=== PATIENT | male | born 1960 | race Caucasian/White ===

== ENCOUNTER 2017-05-26 09:59 | Observation (INO) | payer OTHER ==
[~2017-05-26] VITALS: Ht 180.3 cm; Wt 116.0 kg
[~2017-05-26 09:59] MED LIST: AMLODIPINE10 MG OR; ASA LO-DOSE81 MG OR; BL ADULT ASA81 MG PO; BUPROPION100 M1 OR; BUPROPION100 MG OR; CIPRO500 MG OR; CIPRO500 MG PO; CLEOCIN300 MG OR; ENALAPRIL5 MG OR; ENALAPRIL5 MG PO; FLEXERIL OR; INDOMETHACIN25 MG OR; ISOSORB MONO30 MG PO; K-DUR/KLOR-CON10 MEQ OR; LASIX40 MG OR; LIPITOR40 MG OR; LOPRESSOR12.5 MG PO; LOPRESSOR25 MG PO; LORTAB 7.5 OR; LORTAB5 OR; MAG OXIDE400 MG OR; MEDDOSEPAK OR; METOPROLOL25 M1 OR; MOTRIN800 MG OR; NAPROSYN500 MG OR; NO MEDS; NORCO1 TA1 PO; NORVASC OR; PERCOCET1 TA1 OR; PERCOCET1 TA4 OR; PLAVIX75 MG OR; PLAVIX75 MG PO; PRILOSEC40 MG OR; PROTONIX40 M2 PO; SIMVASTATIN40 MG OR; SIMVASTATIN40 MG PO; SM ASPIRIN81 M1 OR; ULTRAM50 MG PO; VENTOLIN HFA IN; WELLBUTRI OR; WELLBUTRIN100 M2 PO; ZANTAC150 M1 OR; ZETIA10 MG OR; ZOCOR OR; ZOCOR40 MG OR
--- NOTE | 2017-05-26 09:59 | NUR ---
PT TO ROOM 12 VIA WC. ABLE TO STAND AND TRANSFER SELF TO STRETCHER.
[2017-05-26] MEDS ORDERED: LOSARTAN POTASS50 MG PO (10:28)
[2017-05-26] MEDS ORDERED: ATORVASTATIN CA40 MG PO (10:29)
[2017-05-26] MEDS ORDERED: METOPROL TAR25 MG PO (10:30)
[2017-05-26] MEDS ORDERED: CENTRUM SILVER1 TA2 PO (10:31)
[2017-05-26] MEDS ORDERED: OMEPRAZOLE10 MG PO (10:31)
[2017-05-26 10:38] LABS: HEMATOCRIT 45.9 % (39.0-50.0); HEMOGLOBIN 15.1 g/dl (14.0-18.0); IMMATURE GRANULOCYTES 0.4 % (0.0-1.0); MEAN CELL VOLUME 84.1 fL CALC (80.0-100.0); MEAN CORPUSCULAR HGB 27.7 pG CALC (26.0-32.0); MEAN CORPUSCULAR HGB CONC 32.9 g/L CALC (32.0-36.0); NEUT# 6.86 thou/uL (1.82-7.42); RED BLOOD COUNT 5.46 mill/uL (4.70-6.10); RED CELL DISTRI WIDTH 14.6 % (11.5-15.5)
[2017-05-26 11:01] LABS: ALBUMIN 4.3 g/dL (3.2-5.0); ALKALINE PHOSPHATASE 95 u/l (38-126); ANION GAP 15 (6-22 (CALC)); BILIRUBIN, TOTAL 0.5 mg/dL (0.0-1.4); BUN 9 mg/dL (9-20); BUN/CREATININE RATIO 12 (12-20 (CALC)); CALCIUM 9.5 mg/dL (8.4-10.2); CARBON DIOXIDE 26 mmol/l (22-30); CHLORIDE 103 mmol/l (95-108); CREATININE 0.7 mg/dL (0.7-1.3); GFR > 60 ML/MIN (>=60 (CALC)); GFR FOR AFR.AMER. > 60 ML/MIN (>=60 (CALC)); GLUCOSE 175 mg/dL (75-110); POTASSIUM 3.8 mmol/l (3.5-5.1); SGOT/AST 25 u/l (17-59); SGPT/ALT 47 u/l (21-72); SODIUM 140 mmol/l (137-146); TOTAL PROTEIN 7.7 g/dL (6.3-8.2)
[2017-05-26 11:13] LABS: MYOGLOBIN 24 ng/mL (0 - 121)
--- NOTE | 2017-05-26 11:30 | NUR ---
SBAR PRINTED TO FLOOR
--- NOTE | 2017-05-26 11:34 | NUR ---
EDP SPEAKS WITH PT, AWARE OF PENDING ADMISSION. PT WITHOUT COMPLAINT OF CHEST PAIN OR SHORTNESS OF BREATH. FAMILY AT BEDSIDE.
--- NOTE | 2017-05-26 13:00 | NUR ---
PT ARRIVED FROM ER [facility] WC ACCOMPANIED BY STAFF,. IV SITE IS FREE FROM REDNESS OR EDEMA. NO DISTRESS NOTED. CONTINUE TO OSBERVE AND MONITOR.
--- NOTE | 2017-05-26 13:00 | NUR ---
Admission Note Report Given to: SBAR PRINTED TO FLOOR Transported by: X Wheelchair Stretcher Transported with: X Nurse Transporter X Patent IV O2 X Class A Regional Truck Driver
[2017-05-26 13:16] VITALS: BP 145/95
--- NOTE | 2017-05-26 13:25 | NUR ---
PT TAKEN TO ROOM WITHOUT INCIDENT.
--- NOTE | 2017-05-26 13:30 | NUR ---
PT'S ASSESSMENT IS COMPLETED NO DISTRESS NOTED. IV SITE IS FREE FROM REDNESS OR EDEMA. CONTINUE TO [facility]
--- NOTE | 2017-05-26 15:53 | NUR ---
pt c/o naussea with medication"ranexa". will inform the
--- NOTE | 2017-05-26 16:30 | NUR ---
PT HAS BEEN AMBULATING IN THE [facility] NO DISTRESS NOTED. IV SITE IS FREE FROM REDNESS OR EDEMA.
[2017-05-26 19:30] VITALS: BP 151/94
--- NOTE | 2017-05-26 21:15 | NUR ---
PT RESTING IN SEMI FOWLERS POSITION;PT DENIES ANY CHEST PAIN;RESPIRATIONS EVEN AND UNLABORED ON RA;ASSESSMENT COMPLETED;#20G TO LAC FLUSHED AND PATENT;TELE MONITOR IN PLACE;MAURICIO AND CLEAR LUNG SOUNDS;SKIN INTACT;SAFETY PRECAUTIONS REINFORCED;FRESH WATER PROVIDED PER REQUEST;CALL LIGHT IN REACH;WILL CONTINUE TO MONITOR
[2017-05-26 23:07] VITALS: BP 121/83
--- NOTE | 2017-05-27 00:20 | NUR ---
LAB AT BEDSIDE;PT VOICES NO COMPLAINTS OF PAIN OR DISCOMFORTS;RESPIRATIONS EVEN AND UNLABORED ON RA;TELE MONITOR IN PLACE;CALL LIGHT IN REACH;WILL CONTINUE TO MONITOR
--- NOTE | 2017-05-27 04:25 | NUR ---
PT RESTING IN BED;VS OBTAINED BY MARCELLE FRANCSI;PT DENIES ANY CHEST PAIN OR DISCOMFORTS THIS MORNING;TELE MONITOR IN PLACE;PT DENIES ANY NEEDS AND IS EDUCATED TO CALL FOR ASSISTANCE IF NEEDED;CALL LIGHT IN REACH;WILL CONTINUE TO MONITOR
[2017-05-27 04:26] VITALS: BP 142/89
--- NOTE | 2017-05-27 07:00 | NUR ---
REPORT RECIEVED FROM ELSA KEATING. PT AWAKE ON ENTRY AND SITTING ON SIDE OF BED WITH FAMILY AT BEDSIDE. PT HAS NO COMPLAINTS OF PAIN. RESP EVEN AND UNLABORED.TELE IN PLACE. SAFETY PRECAUTIONS REINFORCED. WILL CONTINUE TO MONITOR. CALL LIGHT WITHIN REACH.
[2017-05-27 08:29] VITALS: BP 131/85
[2017-05-27 09:56] VITALS: BP 131/85
--- NOTE | 2017-05-27 13:16 | NUR ---
Discharge instructions given. Patient verbalizes understanding of same. Discharged in stable condition via Ambulatory to Home with spouse. All belongings sent with pt.
== END 2017-05-27 13:16 | disposition home or self-care (01) | DRG 303 ==
LOC: ED 09:59 → ED-I 11:20 → ED 11:31 → MS2 11:32
PROVIDERS: Emergency Medicine; ADMIT Internal Medicine; ATTEND Internal Medicine
DX: I25.118 Atherosclerotic heart disease of native coronary artery with other forms of angina pectoris (principal); J43.9 Emphysema, unspecified; I10 Essential (primary) hypertension; E78.5 Hyperlipidemia, unspecified; F17.210 Nicotine dependence, cigarettes, uncomplicated; I25.2 Old myocardial infarction; Z95.1 Presence of aortocoronary bypass graft; Z95.5 Presence of coronary angioplasty implant and graft
CPT/HCPCS: G0378

== ENCOUNTER 2017-06-24 15:20 | Emergency (ER) | payer OTHER ==
[~2017-06-24] VITALS: Ht 180.3 cm; Wt 85.0 kg
[~2017-06-24 15:20] MED LIST changes: +ATORVASTATIN CA40 MG PO; +CENTRUM SILVER1 TA2 PO; +LOSARTAN POTASS50 MG PO; +METOPROL TAR25 MG PO; +OMEPRAZOLE10 MG PO
[2017-06-24 16:06] LABS: HEMATOCRIT 37.3 % (39.0-50.0); IMMATURE GRANULOCYTES 0.8 % (0.0-1.0); MEAN CELL VOLUME 85.9 fL CALC (80.0-100.0); MEAN CORPUSCULAR HGB 27.6 pG CALC (26.0-32.0); MEAN CORPUSCULAR HGB CONC 32.2 g/L CALC (32.0-36.0); NEUT# 8.39 thou/uL (1.82-7.42); RED BLOOD COUNT 4.34 mill/uL (4.70-6.10); RED CELL DISTRI WIDTH 15.1 % (11.5-15.5)
[2017-06-24] MEDS ORDERED: PERCOCET 10/31 COMBO PO (16:07)
[2017-06-24 16:12] LABS: ALBUMIN 4.1 g/dL (3.2-5.0); ALKALINE PHOSPHATASE 109 u/l (38-126); ANION GAP 17 (6-22 (CALC)); BILIRUBIN, TOTAL 0.4 mg/dL (0.0-1.4); BUN 8 mg/dL (9-20); BUN/CREATININE RATIO 11 (12-20 (CALC)); CALCIUM 9.7 mg/dL (8.4-10.2); CARBON DIOXIDE 24 mmol/l (22-30); CHLORIDE 106 mmol/l (95-108); CREATININE 0.8 mg/dL (0.7-1.3); GFR > 60 ML/MIN (>=60 (CALC)); GFR FOR AFR.AMER. > 60 ML/MIN (>=60 (CALC)); GLUCOSE 142 mg/dL (75-110); POTASSIUM 3.6 mmol/l (3.5-5.1); SGOT/AST 26 u/l (17-59); SGPT/ALT 37 u/l (21-72); SODIUM 144 mmol/l (137-146); TOTAL PROTEIN 6.8 g/dL (6.3-8.2)
[2017-06-24] MEDS ORDERED: BACTRIM DS1 TAB PO (17:00)
[2017-06-24 17:08] VITALS: BP 123/77
[2017-06-24] MEDS ORDERED: PERCOCET1 TA2 PO (17:12)
== END 2017-06-24 17:40 | disposition home or self-care (01) | DRG 603 ==
LOC: ED 15:20
PROVIDERS: Emergency Medicine
DX: L03.116 Cellulitis of left lower limb (principal); E78.5 Hyperlipidemia, unspecified; I10 Essential (primary) hypertension; I25.10 Atherosclerotic heart disease of native coronary artery without angina pectoris; I25.2 Old myocardial infarction; F17.210 Nicotine dependence, cigarettes, uncomplicated; M79.89 Other specified soft tissue disorders; Z95.1 Presence of aortocoronary bypass graft; Z98.890 Other specified postprocedural states

== ENCOUNTER 2019-12-06 14:55 | Emergency (ER) | payer OTHER ==
[~2019-12-06 14:55] MED LIST changes: +ASPIRIN CHEWABL81 MG PO; +BACTRIM DS1 TAB PO; -BL ADULT ASA81 MG PO; +PERCOCET 10/31 COMBO PO; +PERCOCET1 TA2 PO
[2019-12-06 15:26] LABS: HEMATOCRIT 45.1 % (39.0-50.0); HEMOGLOBIN 14.5 g/dl (14.0-18.0); IMMATURE GRANULOCYTES 0.8 % (0.0-5.0); MEAN CELL VOLUME 83.4 fL CALC (80.0-100.0); MEAN CORPUSCULAR HGB 26.8 pG CALC (26.0-32.0); MEAN CORPUSCULAR HGB CONC 32.2 g/dL CAL (32.0-36.0); NEUT# 9.78 thou/uL (1.82-7.42); RED BLOOD COUNT 5.41 mill/uL (4.70-6.10); RED CELL DISTRI WIDTH 15.7 % (11.5-15.5)
[2019-12-06 15:43] LABS: ALBUMIN 4.4 g/dL (3.2-5.0); ALKALINE PHOSPHATASE 111 u/l (38-126); ANION GAP 14 (6-22 (CALC)); BILIRUBIN, TOTAL 0.3 mg/dL (0.0-1.4); BUN 11 mg/dL (9-20); BUN/CREATININE RATIO 18 (12-20 (CALC)); CARBON DIOXIDE 25 mmol/l (22-30); CHLORIDE 100 mmol/l (95-108); CREATININE 0.6 mg/dL (0.7-1.3); GFR > 60 ML/MIN (>=60 (CALC)); GFR FOR AFR.AMER. > 60 ML/MIN (>=60 (CALC)); POTASSIUM 3.7 mmol/l (3.5-5.1); SGOT/AST 32 u/l (17-59); SODIUM 135 mmol/l (137-146); TOTAL PROTEIN 8.4 g/dL (6.3-8.2)
[2019-12-06 16:04] LABS: URINE BILIRUBIN - DIPSTICK NEGATIVE (NEGATIVE); URINE BLOOD DIPSTICK SMALL (NEGATIVE); URINE COLOR YELLOW; URINE GLUCOSE - DIPSTICK NEGATIVE (NEGATIVE); URINE KETONE NEGATIVE (NEGATIVE); URINE LEUK ESTERASE NEGATIVE (NEGATIVE); URINE NITRITE - DIPSTICK NEGATIVE (Negative); URINE PROTEIN - DIPSTICK NEGATIVE (NEG-TRACE); URINE SPECIFIC GRAVITY 1.025; URINE UROBILINOGEN - DIPSTICK 0.2 E.U./dL (0.2)
[2019-12-06] MEDS ORDERED: LASIX 20 MG TAB20 MG PO (16:12)
[2019-12-06 16:13] LABS: URINE WBC 0-2 WBC/hpf (0-5)
[2019-12-06] MEDS ORDERED: ISOSORB MONO60 M1 PO (16:13)
[2019-12-06] MEDS ORDERED: OMEPRAZOLE DR40 MG PO (16:14)
[2019-12-06] MEDS ORDERED: NITROSTAT0.4 MG SL (16:14)
[2019-12-06] MEDS ORDERED: CRESTOR10 MG PO (16:15)
[2019-12-06 17:13] VITALS: BP 143/89
[2020-04-06] MEDS ORDERED: PLAVIX75 MG PO (08:17)
[2020-04-06] MEDS ORDERED: ASPIRIN 8181 MG PO (08:21)
== END 2019-12-06 17:13 | disposition left against medical advice (07) ==
LOC: ED 14:55 → ED-I 15:39 → ED 15:39 → ED-I 16:40 → ED 17:13
PROVIDERS: Family Medicine
DX: I25.119 Atherosclerotic heart disease of native coronary artery with unspecified angina pectoris (principal); I10 Essential (primary) hypertension; I25.2 Old myocardial infarction; F17.200 Nicotine dependence, unspecified, uncomplicated; Z95.5 Presence of coronary angioplasty implant and graft; Z95.1 Presence of aortocoronary bypass graft; Z91.19 Patient's noncompliance with other medical treatment and regimen; Z20.828 Contact with and (suspected) exposure to other viral communicable diseases

== ENCOUNTER 2020-01-23 17:15 | Emergency (ER) | payer OTHER ==
[~2020-01-23] VITALS: Ht 180.3 cm; Wt 102.0 kg
[~2020-01-23 17:15] MED LIST changes: +CRESTOR10 MG PO; +ISOSORB MONO60 M1 PO; +LASIX 20 MG TAB20 MG PO; +NITROSTAT0.4 MG SL; +OMEPRAZOLE DR40 MG PO
[2020-01-23 18:17] LABS: HEMATOCRIT 43.7 % (39.0-50.0); HEMOGLOBIN 13.7 g/dl (14.0-18.0); IMMATURE GRANULOCYTES 0.6 % (0.0-5.0); MEAN CORPUSCULAR HGB 26.7 pG CALC (26.0-32.0); MEAN CORPUSCULAR HGB CONC 31.4 g/dL CAL (32.0-36.0); NEUT# 8.14 thou/uL (1.82-7.42); RED BLOOD COUNT 5.14 mill/uL (4.70-6.10); RED CELL DISTRI WIDTH 15.6 % (11.5-15.5)
[2020-01-23 18:33] LABS: URINE BILIRUBIN - DIPSTICK NEGATIVE (NEGATIVE); URINE BLOOD DIPSTICK NEGATIVE (NEGATIVE); URINE COLOR YELLOW; URINE GLUCOSE - DIPSTICK NEGATIVE (NEGATIVE); URINE KETONE NEGATIVE (NEGATIVE); URINE LEUK ESTERASE NEGATIVE (NEGATIVE); URINE NITRITE - DIPSTICK NEGATIVE (Negative); URINE PROTEIN - DIPSTICK NEGATIVE (NEG-TRACE); URINE SPECIFIC GRAVITY 1.025; URINE UROBILINOGEN - DIPSTICK 0.2 E.U./dL (0.2)
[2020-01-23 18:45] LABS: ALKALINE PHOSPHATASE 93 u/l (38-126); AMYLASE 77 u/l (30-110); ANION GAP 8 (6-22 (CALC)); BILIRUBIN, TOTAL 0.3 mg/dL (0.0-1.4); BUN 8 mg/dL (9-20); BUN/CREATININE RATIO 12 (12-20 (CALC)); CARBON DIOXIDE 29 mmol/l (22-30); CHLORIDE 101 mmol/l (95-108); CREATININE 0.7 mg/dL (0.7-1.3); GFR > 60 ML/MIN (>=60 (CALC)); GFR FOR AFR.AMER. > 60 ML/MIN (>=60 (CALC)); LIPASE 157 u/l (23-300); POTASSIUM 3.9 mmol/l (3.5-5.1); SGOT/AST 35 u/l (17-59); SODIUM 134 mmol/l (137-146); TOTAL PROTEIN 7.8 g/dL (6.3-8.2)
[2020-01-23 19:38] LABS: MYOGLOBIN 46 ng/mL (0 - 121)
[2020-01-23] MEDS ORDERED: PHENERGAN25 MG/TAB PO ×2 (20:02)
[2020-01-23] MEDS ORDERED: LORTAB 5/3255 MG PO (20:02)
[2020-01-23 20:23] VITALS: BP 153/88
[2020-04-06] MEDS ORDERED: PLAVIX75 MG PO (08:17)
[2020-04-06] MEDS ORDERED: ASPIRIN 8181 MG PO (08:21)
== END 2020-01-23 20:23 | disposition home or self-care (01) ==
LOC: ED 17:15
PROVIDERS: Emergency Medicine
DX: R10.11 Right upper quadrant pain (principal); R10.31 Right lower quadrant pain; K82.9 Disease of gallbladder, unspecified; N20.0 Calculus of kidney; I10 Essential (primary) hypertension; I25.10 Atherosclerotic heart disease of native coronary artery without angina pectoris; I25.2 Old myocardial infarction; F17.200 Nicotine dependence, unspecified, uncomplicated; Z95.1 Presence of aortocoronary bypass graft; Z95.5 Presence of coronary angioplasty implant and graft; Z20.828 Contact with and (suspected) exposure to other viral communicable diseases
CPT/HCPCS: Q9967; S0164

== ENCOUNTER 2020-02-21 18:30 | Emergency (ER) | payer OTHER ==
[~2020-02-21] VITALS: Ht 180.3 cm; Wt 129.5 kg
[~2020-02-21 18:30] MED LIST changes: +LORTAB 5/3255 MG PO; +PHENERGAN25 MG/TAB PO
[2020-02-21] MEDS ORDERED: PERCOCET 5/325M1 TAB PO (18:44)
[2020-02-21 19:01] LABS: HEMATOCRIT 45.3 % (39.0-50.0); HEMOGLOBIN 13.9 g/dl (14.0-18.0); IMMATURE GRANULOCYTES 0.6 % (0.0-5.0); MEAN CELL VOLUME 84.7 fL CALC (80.0-100.0); MEAN CORPUSCULAR HGB CONC 30.7 g/dL CAL (32.0-36.0); NEUT# 7.84 thou/uL (1.82-7.42); RED BLOOD COUNT 5.35 mill/uL (4.70-6.10); RED CELL DISTRI WIDTH 15.2 % (11.5-15.5)
[2020-02-21 19:17] LABS: URINE BILIRUBIN - DIPSTICK NEGATIVE (NEGATIVE); URINE BLOOD DIPSTICK TRACE-INTACT (NEGATIVE); URINE COLOR YELLOW; URINE GLUCOSE - DIPSTICK NEGATIVE (NEGATIVE); URINE KETONE TRACE mg/dL (NEGATIVE); URINE LEUK ESTERASE NEGATIVE (NEGATIVE); URINE NITRITE - DIPSTICK NEGATIVE (Negative); URINE PROTEIN - DIPSTICK NEGATIVE (NEG-TRACE); URINE SPECIFIC GRAVITY >=1.030
[2020-02-21 19:21] LABS: ALBUMIN 4.5 g/dL (3.2-5.0); ALKALINE PHOSPHATASE 108 u/l (38-126); ANION GAP 11 (6-22 (CALC)); BILIRUBIN, TOTAL 0.3 mg/dL (0.0-1.4); BUN 10 mg/dL (9-20); BUN/CREATININE RATIO 12 (12-20 (CALC)); CARBON DIOXIDE 28 mmol/l (22-30); CHLORIDE 103 mmol/l (95-108); CREATININE 0.8 mg/dL (0.7-1.3); GFR > 60 ML/MIN (>=60 (CALC)); GFR FOR AFR.AMER. > 60 ML/MIN (>=60 (CALC)); LIPASE 85 u/l (23-300); POTASSIUM 3.9 mmol/l (3.5-5.1); SGOT/AST 31 u/l (17-59); SODIUM 138 mmol/l (137-146); TOTAL PROTEIN 8.2 g/dL (6.3-8.2)
[2020-02-21 21:14] VITALS: BP 143/85
[2020-04-06] MEDS ORDERED: PLAVIX75 MG PO (08:17)
[2020-04-06] MEDS ORDERED: ASPIRIN 8181 MG PO (08:21)
== END 2020-02-21 22:15 ==
LOC: ED 18:30
PROVIDERS: Family Medicine
DX: K80.00 Calculus of gallbladder with acute cholecystitis without obstruction (principal); I10 Essential (primary) hypertension; F17.200 Nicotine dependence, unspecified, uncomplicated; Z20.828 Contact with and (suspected) exposure to other viral communicable diseases

== ENCOUNTER 2020-02-28 10:50 | Emergency (ER) | payer OTHER ==
[~2020-02-28] VITALS: Ht 180.3 cm; Wt 127.0 kg
[~2020-02-28 10:50] MED LIST changes: +PERCOCET 5/325M1 TAB PO
[2020-02-28 12:22] LABS: HEMATOCRIT 43.1 % (39.0-50.0); HEMOGLOBIN 13.3 g/dl (14.0-18.0); IMMATURE GRANULOCYTES 0.8 % (0.0-5.0); MEAN CELL VOLUME 84.2 fL CALC (80.0-100.0); MEAN CORPUSCULAR HGB CONC 30.9 g/dL CAL (32.0-36.0); NEUT# 8.29 thou/uL (1.82-7.42); RED BLOOD COUNT 5.12 mill/uL (4.70-6.10); RED CELL DISTRI WIDTH 15.5 % (11.5-15.5)
[2020-02-28 12:30] LABS: GFR > 60 ML/MIN (>=60 (CALC)); GFR FOR AFR.AMER. > 60 ML/MIN (>=60 (CALC))
[2020-02-28 12:41] LABS: URINE BILIRUBIN - DIPSTICK NEGATIVE (NEGATIVE); URINE BLOOD DIPSTICK NEGATIVE (NEGATIVE); URINE COLOR YELLOW; URINE GLUCOSE - DIPSTICK NEGATIVE (NEGATIVE); URINE KETONE NEGATIVE (NEGATIVE); URINE LEUK ESTERASE NEGATIVE (NEGATIVE); URINE NITRITE - DIPSTICK NEGATIVE (Negative); URINE PH 6.5 (4.5-8.0); URINE PROTEIN - DIPSTICK NEGATIVE (NEG-TRACE); URINE SPECIFIC GRAVITY 1.015; URINE UROBILINOGEN - DIPSTICK 0.2 E.U./dL (0.2)
[2020-02-28 12:51] LABS: ALBUMIN 4.3 g/dL (3.2-5.0); ALKALINE PHOSPHATASE 105 u/l (38-126); ANION GAP 12 (6-22 (CALC)); BILIRUBIN, TOTAL 0.2 mg/dL (0.0-1.4); BUN 6 mg/dL (9-20); BUN/CREATININE RATIO 10 (12-20 (CALC)); CARBON DIOXIDE 25 mmol/l (22-30); CHLORIDE 103 mmol/l (95-108); CREATININE 0.7 mg/dL (0.7-1.3); GFR > 60 ML/MIN (>=60 (CALC)); GFR FOR AFR.AMER. > 60 ML/MIN (>=60 (CALC)); LIPASE 53 u/l (23-300); POTASSIUM 3.7 mmol/l (3.5-5.1); SGOT/AST 29 u/l (17-59); SODIUM 137 mmol/l (137-146); TOTAL PROTEIN 7.8 g/dL (6.3-8.2)
[2020-02-28 15:22] VITALS: BP 111/85
[2020-04-06] MEDS ORDERED: PLAVIX75 MG PO (08:17)
[2020-04-06] MEDS ORDERED: ASPIRIN 8181 MG PO (08:21)
== END 2020-02-28 15:22 | disposition home or self-care (01) ==
LOC: ED 10:50
PROVIDERS: Family Medicine
DX: R10.30 Lower abdominal pain, unspecified (principal); R10.33 Periumbilical pain; R50.9 Fever, unspecified; I10 Essential (primary) hypertension; K21.9 Gastro-esophageal reflux disease without esophagitis; F17.210 Nicotine dependence, cigarettes, uncomplicated; Z95.5 Presence of coronary angioplasty implant and graft; Z90.49 Acquired absence of other specified parts of digestive tract; Z20.828 Contact with and (suspected) exposure to other viral communicable diseases
CPT/HCPCS: Q9967

== ENCOUNTER 2020-03-07 14:56 | Emergency (ER) | payer OTHER ==
[~2020-03-07] VITALS: Ht 180.3 cm; Wt 84.4 kg
[2020-03-07 15:48] LABS: HEMATOCRIT 43.7 % (39.0-50.0); HEMOGLOBIN 13.4 g/dl (14.0-18.0); IMMATURE GRANULOCYTES 0.7 % (0.0-5.0); MEAN CELL VOLUME 85.4 fL CALC (80.0-100.0); MEAN CORPUSCULAR HGB 26.2 pG CALC (26.0-32.0); MEAN CORPUSCULAR HGB CONC 30.7 g/dL CAL (32.0-36.0); NEUT# 8.79 thou/uL (1.82-7.42); RED BLOOD COUNT 5.12 mill/uL (4.70-6.10); RED CELL DISTRI WIDTH 15.5 % (11.5-15.5)
[2020-03-07 15:51] LABS: URINE BILIRUBIN - DIPSTICK NEGATIVE (NEGATIVE); URINE BLOOD DIPSTICK SMALL (NEGATIVE); URINE CLARITY CLEAR; URINE COLOR YELLOW; URINE GLUCOSE - DIPSTICK NEGATIVE (NEGATIVE); URINE KETONE NEGATIVE (NEGATIVE); URINE LEUK ESTERASE NEGATIVE (Negative); URINE NITRITE - DIPSTICK NEGATIVE (Negative); URINE PH 5.5 (4.5-8.0); URINE PROTEIN - DIPSTICK NEGATIVE (NEG-TRACE); URINE SPECIFIC GRAVITY 1.025; URINE UROBILINOGEN - DIPSTICK 0.2 E.U./dL (0.2)
[2020-03-07 16:01] LABS: ALBUMIN 4.3 g/dL (3.2-5.0); ALKALINE PHOSPHATASE 116 u/l (38-126); ANION GAP 12 (6-22 (CALC)); BILIRUBIN, TOTAL 0.3 mg/dL (0.0-1.4); BUN 11 mg/dL (9-20); BUN/CREATININE RATIO 14 (12-20 (CALC)); CARBON DIOXIDE 27 mmol/l (22-30); CHLORIDE 102 mmol/l (95-108); CREATININE 0.8 mg/dL (0.7-1.3); GFR > 60 ML/MIN (>=60 (CALC)); GFR FOR AFR.AMER. > 60 ML/MIN (>=60 (CALC)); LIPASE 105 u/l (23-300); POTASSIUM 3.9 mmol/l (3.5-5.1); SGOT/AST 26 u/l (17-59); SODIUM 138 mmol/l (137-146); TOTAL PROTEIN 7.8 g/dL (6.3-8.2)
[2020-03-07 16:10] LABS: URINE RBC 0-2 RBC/hpf (0-5)
[2020-03-07 18:00] VITALS: BP 141/83
[2020-04-06] MEDS ORDERED: PLAVIX75 MG PO (08:17)
[2020-04-06] MEDS ORDERED: ASPIRIN 8181 MG PO (08:21)
== END 2020-03-07 18:00 | disposition home or self-care (01) ==
LOC: ED 14:56
DX: S39.011A Strain of muscle, fascia and tendon of abdomen, initial encounter (principal); I10 Essential (primary) hypertension; K21.9 Gastro-esophageal reflux disease without esophagitis; F17.210 Nicotine dependence, cigarettes, uncomplicated; X50.0XXA Overexertion from strenuous movement or load, initial encounter; Z90.49 Acquired absence of other specified parts of digestive tract; I25.810 Atherosclerosis of coronary artery bypass graft(s) without angina pectoris; E78.00 Pure hypercholesterolemia, unspecified
CPT/HCPCS: Q9967

== ENCOUNTER 2020-03-11 00:53 | Observation (INO) | payer OTHER ==
[~2020-03-11] VITALS: Ht 177.8 cm; Wt 129.9 kg
--- NOTE | 2020-03-11 01:00 | NUR ---
BY WC TO ROOM
--- NOTE | 2020-03-11 01:01 | NUR ---
PT. TO ROOM 6 WITH C/O HAVING GALLBLADDER SURGERY APPROX. 3 WEEKS AGO AND THIS EVENING HE WAS COUGHING AND HE STATES HE FELT A POP AND THEN SEVERE PAIN TO HIS RUQ. ABD IS DISTENDED WITH + BOWEL SOUNDS.
--- NOTE | 2020-03-11 02:01 | NUR ---
ASSESSMENT UNCHANGED. AWAITING LAB RESULTS FOR PT.
[2020-03-11 02:15] LABS: HEMATOCRIT 40.6 % (39.0-50.0); HEMOGLOBIN 12.3 g/dl (14.0-18.0); IMMATURE GRANULOCYTES 0.8 % (0.0-5.0); MEAN CELL VOLUME 85.7 fL CALC (80.0-100.0); MEAN CORPUSCULAR HGB 25.9 pG CALC (26.0-32.0); MEAN CORPUSCULAR HGB CONC 30.3 g/dL CAL (32.0-36.0); NEUT# 7.04 thou/uL (1.82-7.42); RED BLOOD COUNT 4.74 mill/uL (4.70-6.10); RED CELL DISTRI WIDTH 15.6 % (11.5-15.5)
[2020-03-11 02:27] LABS: AMYLASE 45 u/l (30-110); LIPASE 85 u/l (23-300)
--- NOTE | 2020-03-11 03:15 | NUR ---
IN ROOM TO DISCUSS CLINICAL FINDINGS WITH PT. VERBALIZED UNDERSTANDING.
--- NOTE | 2020-03-11 03:53 | NUR ---
PT. RESTING ON STRETCHER, ASSESSMENT UNCHANGED. V/S STABLE.
--- NOTE | 2020-03-11 03:55 | NUR ---
PT. MADE AWARE OF ADMISSION, VERBALIZED UNDERSTANDING.
--- NOTE | 2020-03-11 04:40 | NUR ---
PT. STATES HIS ABD. PAIN IS NOW DECREASED TO A 2 ON A SCALE OF 1-10.
--- NOTE | 2020-03-11 05:19 | NUR ---
Admission Note Report Given to: CACHORRO HUNTER Transported by: Wheelchair X Stretcher Transported with: X Nurse Transporter X Patent IV O2 Environmental Web Crawler Location: ICU X [facility]
--- NOTE | 2020-03-11 05:21 | NUR ---
TO MS VIA STRETCHER, NO C/O AT THIS TIME.
[2020-03-11 05:31] LABS: HEMATOCRIT 38.3 % (39.0-50.0); HEMOGLOBIN 11.6 g/dl (14.0-18.0); IMMATURE GRANULOCYTES 0.7 % (0.0-5.0); MEAN CELL VOLUME 85.5 fL CALC (80.0-100.0); MEAN CORPUSCULAR HGB 25.9 pG CALC (26.0-32.0); MEAN CORPUSCULAR HGB CONC 30.3 g/dL CAL (32.0-36.0); NEUT# 11.11 thou/uL (1.82-7.42); RED BLOOD COUNT 4.48 mill/uL (4.70-6.10); RED CELL DISTRI WIDTH 15.5 % (11.5-15.5)
[2020-03-11 05:39] VITALS: BP 153/81
[2020-03-11 08:23] VITALS: BP 137/79
--- NOTE | 2020-03-11 08:23 | NUR ---
RECIEVED REPORT FROM BIBINAA DAILY. PT RESTING IN SEMI FOWLERS POSITION UPON ENTERING ROOM. INTRODUCED SELF TO PT AND DISCUSSED POC. ASSESSMENT AND VITALS COMPLETED AT THIS TIME. RESPIRATIONS ARE EVEN AND UNLABORED WITH NO SIGNS OF DISTRESS NOTED. LUNG SOUNDS ARE CLEAR. HEART RHYTHM IS NORMAL. BOWEL SOUNDS ARE ACTIVE IN ALL QUDRANTS, LAST REPORTED BM 03/10/20. RADIAL AND PEDAL PULSES ARE STRONG WITH NORMAL CAPILLARY REFILL. #20 IN DERRICK RUNNING WITH NS PER ORDER, SITE APPEARS HEALTHY AND PATENT. SKIN IS COOL/DRY. PT PRESENTS WITH 4 INSICION SITES IN LUQ AND NAVEL FROM PREVIOUS LAPAROSCOPIC CHOLECYSTECTOMY 3 WEEKS AGO IN [place]. ABD IS FIRM AND DISTENDED ON LEFT SIDE. PT COMPLAINS OF 8/10 PAIN, MORPHINE TO BE ADMINISTERED TO ASSIST. ALL SAFETY PRECAUTIONS ARE IN PLACE WITH CALL LIGHT IN REACH. WILL CONTINUE TO MONITOR
--- NOTE | 2020-03-11 09:19 | NUR ---
REASSESSMENT OF PAIN AT THIS TIME. RESULTING IN 2/10 AT THIS TIME. RESPIRATIONS ARE EVEN AND UNLABORED WITH NO SIGNS OF DISTRESS NOTED. ALL SAEFTY PRECAUTIONS REINFORCED. WILL CONTINUE TO MONITOR
--- NOTE | 2020-03-11 09:37 | NUR ---
DR JUNG AND ZACKARY, ANRP AT BEDSIDE DISCUSSING POC WITH PT
[2020-03-11 12:14] LABS: HEMATOCRIT 36.3 % (39.0-50.0); HEMOGLOBIN 10.9 g/dl (14.0-18.0)
--- NOTE | 2020-03-11 12:25 | NUR ---
PT COMPLAINING OF 8/10 ABD PAIN. LORTAB TO BE ADMINISTERED. RESPIRATIONS ARE EVEN AND UNLABORED WITH NO SIGNS OF DISTRESS. ASSESSMENT REMAINS THE SAME. IV FLUIDS DC. #20 IN DERRICK FLUSHED, SITE APPEARS HEALTHY AND PATENT. ALL SAFETY PRECAUTONS REMAIN IN PLACE WITH CALL LIGHT IN REACH. WILL CONINTUE TO MONITOR.
--- NOTE | 2020-03-11 13:10 | NUR ---
REASSESSMENT OF PAIN AT THIS TIME RESULTING IN 12/14.PT STATES "ITS NOT REALLY HELPING TO MUCH." RESPIRTIONS ARE EVEN AND UNLABORED WITH NO SIGNS OF DISTRESS. ALL SAFTEY PRECAUTIONS ARE IN PLACE WTIH CALL LIGHT IN REACH. WILL CONTINUE TO MONITOR
--- NOTE | 2020-03-11 13:40 | NUR ---
DR MANCUSO AT BEDSIDE DISCUSSING POC WITH PT
[2020-03-11 13:48] VITALS: BP 112/57
--- NOTE | 2020-03-11 15:31 | NUR ---
PT COMPLAINS OF 8/10 PAIN IN ABD. DILAUDID TO BE ADMINISTERED, RESPIRATIONS ARE EVEN AND UNLABORED WITH NO SIGNS OF DISTRESS. ASSESSMENT REMAINS THE SAME. ALL SAFETY PRECAUTIONS REAMIN IN PLACE WITH CALL LIGHT IN REACH. WILL CONTINUE TO MOITOR
[2020-03-11 16:09] VITALS: BP 158/91
--- NOTE | 2020-03-11 16:15 | NUR ---
REASSESSMENT OF PAIN AT THIS TIME RESULTING IN 09/13. PT STATES THAT MEDICATION IS WORKING. RESPIRATIONS AREE EVEN AND UNLABORED WITH NO SIGNS OF DISTRESS. ALL SFAETY PRECAUTIONS ARE IN PLACE WITH CALL LIGHT IN REACH. WILL CONTINUE TO MONITOR
--- NOTE | 2020-03-11 18:50 | NUR ---
REPORT RECEIVED FROM ELSA KITCHEN. PT RESTING IN BED FREE FROM DISTRESS AT THIS TIME. SAFETY PRECAUTIONS IN PLACE. WILL CONTINUE TO MONITOR.
[2020-03-11 19:00] VITALS: BP 119/59
[2020-03-11 20:05] LABS: HEMATOCRIT 33.4 % (39.0-50.0); HEMOGLOBIN 10.2 g/dl (14.0-18.0)
--- NOTE | 2020-03-11 20:11 | NUR ---
PT RESTING IN BED, ALERT AND ORIENTED. RESPIRATIONS EVEN AND UNLABORED ON RA. LUNGS SOUND CLEAR. PEDAL PULSES ARE STRONG. PT REPORTS HAVING PAIN OF A 6/10 IN THE RUQ OF HIS ABD, PT TO BE MEDICATED PER EMAR ORDERS. PLAN OF CARE DISCUUSED WITH PT. SAFETY PRECAUTIONS IN PLACE. WILL CONTINUE TO MONITOR.
--- NOTE | 2020-03-12 00:30 | NUR ---
PT SITTING ON THE SIDE OF THE BED, REPORTS HAVING PAIN RATING IN A 7/10, PT MEDICATED PER EMAR ORDERS. SAFETY PRECAUTIONS IN PLACE. WILL CONTINUE TO MONITOR.
[2020-03-12 04:00] VITALS: BP 113/77
--- NOTE | 2020-03-12 04:23 | NUR ---
LAB AT BEDSIDE
--- NOTE | 2020-03-12 04:35 | NUR ---
PT SITTING UP ON THE SIDE OF THE BED, HOLDING A PILLOW TO ABDOMEN, ROCKING, WITH TEARS IN HIS EYES. PT REPORTS PAIN IN HIS RUQ OF THE ABD, RATING IT A 8/10, PT MEDICATED PER EMAR ORDERS. SAFETY PRECAUTIONS IN PLACE. WILL CONTINUE TO MONITOR.
[2020-03-12 04:48] LABS: HEMATOCRIT 35.9 % (39.0-50.0); HEMOGLOBIN 11.2 g/dl (14.0-18.0); MEAN CELL VOLUME 86.1 fL CALC (80.0-100.0); MEAN CORPUSCULAR HGB 26.9 pG CALC (26.0-32.0); MEAN CORPUSCULAR HGB CONC 31.2 g/dL CAL (32.0-36.0); RED BLOOD COUNT 4.17 mill/uL (4.70-6.10); RED CELL DISTRI WIDTH 15.9 % (11.5-15.5)
[2020-03-12 05:05] LABS: ALBUMIN 3.9 g/dL (3.2-5.0); ALKALINE PHOSPHATASE 104 u/l (38-126); ANION GAP 14 (6-22 (CALC)); BILIRUBIN, TOTAL 0.2 mg/dL (0.0-1.4); BUN 11 mg/dL (9-20); BUN/CREATININE RATIO 17 (12-20 (CALC)); CARBON DIOXIDE 24 mmol/l (22-30); CHLORIDE 102 mmol/l (95-108); CREATININE 0.6 mg/dL (0.7-1.3); GFR > 60 ML/MIN (>=60 (CALC)); GFR FOR AFR.AMER. > 60 ML/MIN (>=60 (CALC)); POTASSIUM 4.4 mmol/l (3.5-5.1); SGOT/AST 23 u/l (17-59); SODIUM 136 mmol/l (137-146); TOTAL PROTEIN 6.9 g/dL (6.3-8.2)
[2020-03-12 07:30] VITALS: BP 134/86
--- NOTE | 2020-03-12 07:30 | NUR ---
RECEIVED REPORT FROM BIBIANA DAILY. PT SITTING UP ON SIDE OF BE UPON ENTERING ROOM. INTRODUCED SELF TO PT AND DISCUSSED POC. PT IS A/O AND AMBULATORY. RESPIRATIONS ARE EVEN AND UNLABORED.LUNG SOUNDS ARE CLEAR.HEART RHYTHM IS NORMAL. BOWEL SOUNDS ARE ACTIVE IN ALL QUADRANTS, LAST REPORTED BM 03/12/2020. RADIAL AND PEDAL PULSES ARE STRONG WITH NORMAL CAPILLARY REFILL. #20G IN DERRICK FLUSHED, SITE APPEARS HEALTHY. [facility]11[facility].PT COMPLAINS OF 4/10 PAIN, LORTAB TO BE ADMINISTERED. PT PRESENTS WITH LAP CHOLESECTOMY ABOUT 3WKS AGO IN [place]. PT PRESENTS WITH 4 INCISION SITE IN DERRICK OF ABD. SITE ARE OPEN TO AIR. ABD IS FIRM/DISTENED AND WARM TO TOUCH. ALL SAFETY PRECAUTIONS ARE IN PLACE WITH CALL LIGHT IN REACH. WILL CONTINUE TO MONITOR
--- NOTE | 2020-03-12 08:51 | NUR ---
REASSESSMENT OF PAIN AT THIS TIME RESULTING IN 08/16. RESPIRATIONS ARE EVEN AND UNLABORED WITH NO SIGNS OF DISTRESS NOTED. ALL SAFETY PRECAUTIONS REMAIN IN PLACE WITH CALL LIGHT IN REACH. WILL CONTINUE TO MONITOR
--- NOTE | 2020-03-12 09:09 | NUR ---
DR MANCUSO AT BEDSIDE DISCUSSING POC WITH PT
--- NOTE | 2020-03-12 09:54 | NUR ---
DR FERNANDES AND ZACKARY ANRP AT BEDSIDE DISSCUSSING POC WITH PT
--- NOTE | 2020-03-12 12:23 | NUR ---
PT RESTING IN SEMI FOWLERS POSITION UPON ENTERING ROOM. RESPIRATIONS ARE AND UNLABORED WITH NO SIGNS OF DISTRESS NOTED. NICOTINE PATCH REMOVED FROM RIGHT SHOULDER, NEW PATCH APPLIED TO LEFT SHOULDER.PT COMPLAINS OF 3/10 PAIN IN RUQ OF ABD BUT REFUSES PAIN MEDICATION AT THIS TIME. ALL SAFETY PRECAUTIONS ARE IN PLACE WITH CALL LIGHT IN REACH. WILL CONTINUE TO MONITOR
--- NOTE | 2020-03-12 16:04 | NUR ---
PT RESTING IN SEMI FOWLERS POSITION WATCHING TV.RESPIRTAIONS ARE EVEN AND UNLABORED WITH NO SIGNS OF DISTRESS NOTED. PT STATES "I STILL HAVE SOME PAIN BUT NOT ENOUGH THAT I NEED MEDICINE." WRITTER ENCOURGAED PT TO CALL. PT VERBALIZED UNDERSTANDING. ALL SAFETY PRECAUTIONS REMAIN IN PLAC WITH CALL LIGHT IN REACH. WILL CONTINUE TO MONITOR
[2020-03-12 16:31] VITALS: BP 109/41
--- NOTE | 2020-03-12 18:55 | NUR ---
REPORT FROM AMA HUNTER. PT NOTED RESTING IN BED. NO APPARENT DISTRESS NOTED. RESPIRATIONS EVEN AND UNLABORED. IV SITE APPEARS HEALTHY. DISCUSSED POC. PT VERBALIZED UNDERSTANDING. NO CURRENT WANTS OR NEEDS. CALL LIGHT WITHIN REACH. WILL CONTINUE TO MONITOR.
[2020-03-12 19:32] VITALS: BP 109/72
--- NOTE | 2020-03-12 20:21 | NUR ---
ASSESSMENT COMPLETE. PT C/O DRY COUGH THAT MAKES PAIN WORSE. STATES HE TAKES COUGH MEDICINE AT HOME. WILL NOTIFY BIOINFORMATICIAN PHYSICIAN FOR ORDERS. PT DENIES ANY OTHER CURRENT WANTS OR NEEDS. CALL LIGHT WITHIN REACH. WILL CONTINUE TO MONITOR.
--- NOTE | 2020-03-13 00:05 | NUR ---
PT RESTING IN BED WITH EYES CLOSED. NO APPARENT DISTRESS NOTED. RESPIRATIONS EVEN AND UNLABORED. CALL LIGHT WITHIN REACH. WILL CONTINUE TO MONITOR.
--- NOTE | 2020-03-13 02:57 | NUR ---
PT MEDICATED FOR ABD PAIN AT THIS TIME. COFFEE PROVIDED UPON REQUEST. ABD REMAINS DISTENDED. NO NEW APPARENT BRUISING NOTED. BOWEL SOUNDS PRESENT IN X4 QUAD. PT DENIES ANY OTHER WANTS OR NEEDS. CALL LIGHT WITHIN REACH. WILL CONTINUE TO MONITOR.
[2020-03-13 04:30] VITALS: BP 158/83
[2020-03-13 05:26] LABS: HEMATOCRIT 35.8 % (39.0-50.0); HEMOGLOBIN 10.9 g/dl (14.0-18.0); IMMATURE GRANULOCYTES 0.8 % (0.0-5.0); MEAN CELL VOLUME 86.5 fL CALC (80.0-100.0); MEAN CORPUSCULAR HGB 26.3 pG CALC (26.0-32.0); MEAN CORPUSCULAR HGB CONC 30.4 g/dL CAL (32.0-36.0); NEUT# 6.95 thou/uL (1.82-7.42); RED BLOOD COUNT 4.14 mill/uL (4.70-6.10); RED CELL DISTRI WIDTH 15.6 % (11.5-15.5)
--- NOTE | 2020-03-13 07:50 | NUR ---
ANAIS PENALOZA IN TO VISIT WITH PT.
[2020-03-13 07:55] VITALS: BP 136/81
--- NOTE | 2020-03-13 07:55 | NUR ---
ASSESSMENT IS COMPLTED: IV SITE IS FREE FROM REDNESS OR EDEMA. HR IS REG,PULSES ARE STRONG X4, ABD IS DISTENDED AND FIRM WITH ACTIVE BS, BREATH SOUNDS ARE CLEAR,BILATERALLY, CONTINUE TO OSBERVE AND MONITOR . PT HAS BEEN AMBULATING IN THE [facility].
[2020-03-13 08:04] VITALS: BP 136/81
[2020-03-13] MEDS ORDERED: LORTAB5 PO (09:58)
--- NOTE | 2020-03-13 11:30 | NUR ---
PT RECEIVED DISCHARGE INSTRUCTIONS . VERBALIZED UNDERSTANDING., IV SITE IS DISCONTINED CATHETER INTACT. NO REDNESS OR EDEMA. FAMILY IN THE ROOM.
--- NOTE | 2020-03-13 11:40 | NUR ---
Discharge instructions given. Patient verbalizes understanding of same. Discharged in stable condition via Wheelchair to Home with family. All belongings sent with pt.
[2020-04-06] MEDS ORDERED: PLAVIX75 MG PO (08:17)
[2020-04-06] MEDS ORDERED: ASPIRIN 8181 MG PO (08:21)
== END 2020-03-13 11:37 | disposition home or self-care (01) ==
LOC: ED 00:53 → ED-I 03:43 → ED 04:10 → MS2 04:11
PROVIDERS: Emergency Medicine; Nurse Practitioner Family; Surgery; ADMIT Internal Medicine; ATTEND Internal Medicine
DX: M79.81 Nontraumatic hematoma of soft tissue (principal); T45.525A Adverse effect of antithrombotic drugs, initial encounter; T39.015A Adverse effect of aspirin, initial encounter; I10 Essential (primary) hypertension; I25.10 Atherosclerotic heart disease of native coronary artery without angina pectoris; E78.5 Hyperlipidemia, unspecified; K21.9 Gastro-esophageal reflux disease without esophagitis; F17.210 Nicotine dependence, cigarettes, uncomplicated; Z79.02 Long term (current) use of antithrombotics/antiplatelets; Z79.82 Long term (current) use of aspirin; Z90.49 Acquired absence of other specified parts of digestive tract; Z20.828 Contact with and (suspected) exposure to other viral communicable diseases
CPT/HCPCS: G0378; Q9967

== ENCOUNTER 2020-04-11 07:23 | Day surgery (SDC) | payer OTHER ==
[~2020-04-11] VITALS: Ht 177.8 cm; Wt 131.5 kg
[~2020-04-11 07:23] MED LIST changes: +ASPIRIN 8181 MG PO; +LORTAB5 PO
[2020-04-11 12:06] VITALS: BP 102/64
== END 2020-04-11 09:36 | disposition home or self-care (01) ==
LOC: ENDO 07:23 → ORM 10:00 → ENDO 10:00
PROVIDERS: ATTEND Surgery
DX: Z12.11 Encounter for screening for malignant neoplasm of colon (principal); D12.3 Benign neoplasm of transverse colon; K57.30 Diverticulosis of large intestine without perforation or abscess without bleeding; K64.8 Other hemorrhoids; K50.10 Crohn's disease of large intestine without complications; I10 Essential (primary) hypertension; Z90.49 Acquired absence of other specified parts of digestive tract; Z95.5 Presence of coronary angioplasty implant and graft; Z86.010 Personal history of colon polyps; Z20.828 Contact with and (suspected) exposure to other viral communicable diseases

== ENCOUNTER 2020-05-04 09:01 | Day surgery (SDC) | payer OTHER ==
[2020-05-04 11:58] VITALS: BP 112/74
== END 2020-05-04 11:55 | disposition home or self-care (01) ==
LOC: ENDO 09:01 → ORM 12:15
PROVIDERS: ATTEND Surgery
DX: K29.70 Gastritis, unspecified, without bleeding (principal); K29.80 Duodenitis without bleeding; K44.9 Diaphragmatic hernia without obstruction or gangrene; I10 Essential (primary) hypertension; Z20.828 Contact with and (suspected) exposure to other viral communicable diseases

== ENCOUNTER 2021-03-10 19:02 | Emergency (ER) | payer OTHER ==
[~2021-03-10] VITALS: Ht 177.8 cm; Wt 122.0 kg
[2021-03-10] MEDS ORDERED: PANTOPRAZOLE SO40 M1 PO (19:57)
[2021-03-10] MEDS ORDERED: MULTI PO (19:58)
[2021-03-10 20:22] LABS: URINE BILIRUBIN - DIPSTICK NEGATIVE (NEGATIVE); URINE BLOOD DIPSTICK TRACE-INTACT (NEGATIVE); URINE COLOR YELLOW; URINE GLUCOSE - DIPSTICK NEGATIVE (NEGATIVE); URINE KETONE NEGATIVE (NEGATIVE); URINE LEUK ESTERASE NEGATIVE (NEGATIVE); URINE PH 7.5 (4.5-8.0); URINE PROTEIN - DIPSTICK NEGATIVE (NEG-TRACE); URINE SPECIFIC GRAVITY 1.015; URINE UROBILINOGEN - DIPSTICK 0.2 E.U./dL (0.2)
[2021-03-10 20:24] LABS: HEMATOCRIT 47.7 % (39.0-50.0); HEMOGLOBIN 15.1 g/dl (14.0-18.0); IMMATURE GRANULOCYTES 0.4 % (0.0-5.0); MEAN CELL VOLUME 84.6 fL CALC (80.0-100.0); MEAN CORPUSCULAR HGB 26.8 pG CALC (26.0-32.0); MEAN CORPUSCULAR HGB CONC 31.7 g/dL CAL (32.0-36.0); NEUT# 6.64 thou/uL (1.82-7.42); RED BLOOD COUNT 5.64 mill/uL (4.70-6.10); RED CELL DISTRI WIDTH 15.5 % (11.5-15.5)
[2021-03-10 20:34] LABS: URINE NITRITE - DIPSTICK NEGATIVE (Negative)
[2021-03-10 20:41] LABS: ALBUMIN 4.3 g/dL (3.2-5.0); ALKALINE PHOSPHATASE 105 u/l (38-126); ANION GAP 12 (6-22 (CALC)); BUN 7 mg/dL (9-20); BUN/CREATININE RATIO 9 (12-20 (CALC)); CARBON DIOXIDE 27 mmol/l (22-30); CHLORIDE 97 mmol/l (95-108); CREATININE 0.8 mg/dL (0.7-1.3); GFR > 60 ML/MIN (>=60 (CALC)); GFR FOR AFR.AMER. > 60 ML/MIN (>=60 (CALC)); SODIUM 132 mmol/l (137-146); TOTAL PROTEIN 7.9 g/dL (6.3-8.2)
[2021-03-10 20:42] LABS: BILIRUBIN, TOTAL 0.3 mg/dL (0.0-1.4); SGOT/AST 45 u/l (17-59)
[2021-03-10 20:53] LABS: MYOGLOBIN 41 ng/mL (0 - 121)
[2021-03-10] MEDS ORDERED: MEDDOSEPAK PO (22:16)
[2021-03-10] MEDS ORDERED: ZITHROMAX250 MG PO (22:16)
[2021-03-10 23:50] VITALS: BP 113/80
== END 2021-03-10 23:50 | disposition home or self-care (01) ==
LOC: ED 19:02
PROVIDERS: Emergency Medicine
DX: U07.1 COVID-19 (principal); J12.82 Pneumonia due to coronavirus disease 2019; I10 Essential (primary) hypertension; I25.10 Atherosclerotic heart disease of native coronary artery without angina pectoris; K21.9 Gastro-esophageal reflux disease without esophagitis; E78.00 Pure hypercholesterolemia, unspecified; F17.200 Nicotine dependence, unspecified, uncomplicated; Z95.1 Presence of aortocoronary bypass graft
CPT/HCPCS: Q9967

== ENCOUNTER 2021-10-02 14:22 | Emergency (ER) | payer OTHER ==
[2021-10-02] VITALS (7 sets, daily range): BP systolic 110–155; BP diastolic 76–103
[~2021-10-02] VITALS: Ht 177.8 cm; Wt 123.0 kg
[~2021-10-02 14:22] MED LIST changes: +MEDDOSEPAK PO; +MULTI PO; +PANTOPRAZOLE SO40 M1 PO; +ZITHROMAX250 MG PO
[2021-10-02] MEDS ORDERED: WELLBUTRIN100 M2 PO (14:50)
[2021-10-02] MEDS ORDERED: LORTAB 5/3255 MG PO (15:37)
== END 2021-10-02 16:05 | disposition home or self-care (01) ==
LOC: ED 14:22
DX: S83.91XA Sprain of unspecified site of right knee, initial encounter (principal); I25.10 Atherosclerotic heart disease of native coronary artery without angina pectoris; I10 Essential (primary) hypertension; K21.9 Gastro-esophageal reflux disease without esophagitis; E78.00 Pure hypercholesterolemia, unspecified; F17.200 Nicotine dependence, unspecified, uncomplicated; X50.0XXA Overexertion from strenuous movement or load, initial encounter; Y92.512 Supermarket, store or market as the place of occurrence of the external cause; Z95.1 Presence of aortocoronary bypass graft
CPT/HCPCS: L1830

== ENCOUNTER 2022-01-12 13:17 | Observation (INO) | payer OTHER ==
[~2022-01-12] VITALS: Ht 177.8 cm; Wt 124.5 kg
[2022-01-12] VITALS (10 sets, daily range): BP systolic 106–167; BP diastolic 56–100
[2022-01-12 14:02] LABS: HEMATOCRIT 48.3 % (39.0-50.0); HEMOGLOBIN 15.2 g/dl (14.0-18.0); IMMATURE GRANULOCYTES 0.2 % (0.0-5.0); MEAN CELL VOLUME 86.3 fL CALC (80.0-100.0); MEAN CORPUSCULAR HGB 27.1 pG CALC (26.0-32.0); MEAN CORPUSCULAR HGB CONC 31.5 g/dL CAL (32.0-36.0); NEUT# 7.47 thou/uL (1.82-7.42); RED BLOOD COUNT 5.6 mill/uL (4.70-6.10)
[2022-01-12 14:10] LABS: ALBUMIN 4.3 g/dL (3.2-5.0); ALKALINE PHOSPHATASE 105 u/l (38-126); ANION GAP 15 (6-22 (CALC)); BUN 13 mg/dL (9-20); BUN/CREATININE RATIO 18 (12-20 (CALC)); CARBON DIOXIDE 25 mmol/l (22-30); CHLORIDE 103 mmol/l (95-108); CREATININE 0.7 mg/dL (0.7-1.3); GFR FOR AFR.AMER. > 60 ML/MIN (>=60 (CALC)); GFR OTHER RACES > 60 ML/MIN (>=60 (CALC)); POTASSIUM 4.3 mmol/l (3.5-5.1); SGOT/AST 30 u/l (17-59); SODIUM 138 mmol/l (137-146); TOTAL PROTEIN 7.7 g/dL (6.3-8.2)
[2022-01-12 14:19] LABS: MYOGLOBIN 24 ng/mL (0 - 121)
[2022-01-12 14:20] LABS: BILIRUBIN, TOTAL 0.3 mg/dL (0.0-1.4)
[2022-01-13] VITALS: BP 111/56
[2022-01-13 03:25] VITALS: BP 140/87
[2022-01-13 04:00] VITALS: BP 140/87
[2022-01-13 06:20] LABS: HEMATOCRIT 42.5 % (39.0-50.0); HEMOGLOBIN 13.7 g/dl (14.0-18.0); MEAN CELL VOLUME 84.2 fL CALC (80.0-100.0); MEAN CORPUSCULAR HGB 27.1 pG CALC (26.0-32.0); MEAN CORPUSCULAR HGB CONC 32.2 g/dL CAL (32.0-36.0); RED BLOOD COUNT 5.05 mill/uL (4.70-6.10); RED CELL DISTRI WIDTH 14.9 % (11.5-15.5)
[2022-01-13 06:30] VITALS: BP 147/51
[2022-01-13 06:43] LABS: ANION GAP 11 (6-22 (CALC)); BUN 13 mg/dL (9-20); BUN/CREATININE RATIO 18 (12-20 (CALC)); CALCULATED LDLCHOLESTEROL 88 mg/dL (62-129 (CALC)); CARBON DIOXIDE 25 mmol/l (22-30); CHLORIDE 106 mmol/l (95-108); CHOLESTEROL HDL RATIO 4.3 (<4.4 (CALC)); CREATININE 0.7 mg/dL (0.7-1.3); GFR FOR AFR.AMER. > 60 ML/MIN (>=60 (CALC)); GFR OTHER RACES > 60 ML/MIN (>=60 (CALC)); HDL CHOLESTEROL 38 mg/dL (>=40); POTASSIUM 3.9 mmol/l (3.5-5.1); SODIUM 138 mmol/l (137-146); TOTAL CHOLESTEROL 163 mg/dl (0-199); TOTAL TRIGLYCERIDES 187 mg/dl (30-149); VLDL CHOLESTROL 37 mg/dl (4-45 (CALC))
[2022-01-13 10:30] VITALS: BP 151/76
== END 2022-01-13 12:27 | disposition home or self-care (01) ==
LOC: ED 13:17 → ED-I 14:45 → ED 15:06 → MS2 15:07
PROVIDERS: Emergency Medicine; ADMIT Hospitalist; ATTEND Hospitalist
DX: R07.9 Chest pain, unspecified (principal); I10 Essential (primary) hypertension; I25.10 Atherosclerotic heart disease of native coronary artery without angina pectoris; K21.9 Gastro-esophageal reflux disease without esophagitis; E78.5 Hyperlipidemia, unspecified; E66.01 Morbid (severe) obesity due to excess calories; F17.200 Nicotine dependence, unspecified, uncomplicated; Z95.5 Presence of coronary angioplasty implant and graft; Z95.1 Presence of aortocoronary bypass graft; Z20.822 Contact with and (suspected) exposure to COVID-19
CPT/HCPCS: G0378

== ENCOUNTER 2022-12-13 17:50 | Observation (INO) | payer OTHER ==
[~2022-12-13] VITALS: Ht 177.8 cm; Wt 131.4 kg
[2022-12-13] VITALS (16 sets, daily range): BP systolic 104–145; BP diastolic 50–89
[2022-12-13 18:24] LABS: BASO% 0.4 % (0-3); HEMATOCRIT 45.2 % (39.0-50.0); HEMOGLOBIN 14.1 g/dl (14.0-18.0); IMMATURE GRANULOCYTES 0.6 % (0.0-5.0); LYMPH% 28.6 % (15-41); MEAN CELL VOLUME 86.9 fL CALC (80.0-100.0); MEAN CORPUSCULAR HGB 27.1 pG CALC (26.0-32.0); MEAN CORPUSCULAR HGB CONC 31.2 g/dL CAL (32.0-36.0); NEUT# 7.54 thou/uL (1.82-7.42); NEUT% 62.4 % (42-76); RED BLOOD COUNT 5.2 mill/uL (4.70-6.10); RED CELL DISTRI WIDTH 14.9 % (11.5-15.5)
[2022-12-13 18:37] LABS: ALBUMIN 4.4 g/dL (3.2-5.0); ALKALINE PHOSPHATASE 106 u/l (38-126); ANION GAP 14 (6-22 (CALC)); BILIRUBIN, TOTAL 0.2 mg/dL (0.2-1.3); BUN 12 mg/dL (8-23); BUN/CREATININE RATIO 16 (12-20 (CALC)); CARBON DIOXIDE 26 mmol/l (22-30); CHLORIDE 102 mmol/l (95-108); CREATININE 0.8 mg/dL (0.7-1.3); GFR FOR AFR.AMER. > 60 ML/MIN (>=60 (CALC)); GFR OTHER RACES > 60 ML/MIN (>=60 (CALC)); POTASSIUM 4.3 mmol/l (3.5-5.1); SGOT/AST 31 u/l (19-48); SODIUM 137 mmol/l (137-146); TOTAL PROTEIN 7.8 g/dL (6.3-8.2)
[2022-12-13 19:07] LABS: URINE BILIRUBIN - DIPSTICK NEGATIVE (NEGATIVE); URINE BLOOD DIPSTICK SMALL (NEGATIVE); URINE COLOR YELLOW; URINE GLUCOSE - DIPSTICK 250 mg/dL (NEGATIVE); URINE KETONE NEGATIVE (NEGATIVE); URINE LEUK ESTERASE NEGATIVE (NEGATIVE); URINE PH 5.5 (4.5-8.0); URINE PROTEIN - DIPSTICK NEGATIVE (NEG-TRACE); URINE UROBILINOGEN - DIPSTICK 0.2 E.U./dL (0.2)
[2022-12-13 19:09] LABS: URINE NITRITE - DIPSTICK NEGATIVE (Negative)
[2022-12-13 19:20] LABS: URINE RBC 0-2 RBC/hpf (0-5); URINE SQUAMOUS EPITHELIAL CELL RARE EPI/hpf (0-FEW); URINE WBC 0-2 WBC/hpf (0-5)
[2022-12-13] MEDS ORDERED: ISOSORB MONO120 MG PO (20:08)
[2022-12-13] MEDS ORDERED: PEPCID20 MG PO (20:08)
[2022-12-13] MEDS ORDERED: ELIQUIS5 MG PO (20:09)
[2022-12-14] VITALS (8 sets, daily range): BP systolic 125–148; BP diastolic 70–106
[2022-12-15 00:07] VITALS: BP 130/67
[2022-12-15 05:03] VITALS: BP 138/86
[2022-12-15 06:09] LABS: BASO% 0.4 % (0-3); EOS% 1.9 % (0-8); HEMATOCRIT 44.3 % (39.0-50.0); HEMOGLOBIN 13.9 g/dl (14.0-18.0); IMMATURE GRANULOCYTES 0.3 % (0.0-5.0); LYMPH% 27.9 % (15-41); MEAN CORPUSCULAR HGB 27.3 pG CALC (26.0-32.0); MEAN CORPUSCULAR HGB CONC 31.4 g/dL CAL (32.0-36.0); MONO% 6.7 % (2-13); NEUT# 7.06 thou/uL (1.82-7.42); NEUT% 62.8 % (42-76); RED BLOOD COUNT 5.09 mill/uL (4.70-6.10)
[2022-12-15 06:13] LABS: ALBUMIN 4.2 g/dL (3.2-5.0); ALKALINE PHOSPHATASE 104 u/l (38-126); ANION GAP 12 (6-22 (CALC)); BUN 13 mg/dL (8-23); BUN/CREATININE RATIO 16 (12-20 (CALC)); CARBON DIOXIDE 27 mmol/l (22-30); CHLORIDE 103 mmol/l (95-108); CREATININE 0.8 mg/dL (0.7-1.3); GFR FOR AFR.AMER. > 60 ML/MIN (>=60 (CALC)); GFR OTHER RACES > 60 ML/MIN (>=60 (CALC)); POTASSIUM 4.4 mmol/l (3.5-5.1); SGOT/AST 27 u/l (19-48); SODIUM 138 mmol/l (137-146); TOTAL PROTEIN 7.2 g/dL (6.3-8.2)
[2022-12-15 06:28] LABS: BILIRUBIN, TOTAL 0.1 mg/dL (0.2-1.3)
[2022-12-15 07:46] VITALS: BP 171/136
[2022-12-15 07:49] VITALS: BP 151/79
[2022-12-15 11:17] VITALS: BP 144/74
== END 2022-12-15 13:26 | disposition home or self-care (01) ==
LOC: ED 17:50 → MS2 20:31
PROVIDERS: Nurse Practitioner; ADMIT Internal Medicine; ATTEND Internal Medicine
DX: I25.118 Atherosclerotic heart disease of native coronary artery with other forms of angina pectoris (principal); I10 Essential (primary) hypertension; K21.9 Gastro-esophageal reflux disease without esophagitis; E78.00 Pure hypercholesterolemia, unspecified; F17.200 Nicotine dependence, unspecified, uncomplicated; Z86.711 Personal history of pulmonary embolism; Z95.1 Presence of aortocoronary bypass graft; Z95.5 Presence of coronary angioplasty implant and graft
CPT/HCPCS: G0378

== ENCOUNTER 2023-12-26 14:16 | Emergency (ER) | payer OTHER ==
[~2023-12-26] VITALS: Ht 177.8 cm; Wt 272.0 kg
[~2023-12-26 14:16] MED LIST changes: +ELIQUIS5 MG PO; +ISOSORB MONO120 MG PO; +PEPCID20 MG PO
[2023-12-26] MEDS ORDERED: ONDANSETRON HCl 4 MG/2 ML SDV IV ONE (14:30)
[2023-12-26] MEDS ORDERED: HYDROmorphone HCL 2 MG/AMP IV ONE ×2 (14:30→15:05)
[2023-12-26 14:33] VITALS: BP 112/76
[2023-12-26 14:46] VITALS: BP 131/73
[2023-12-26 15:06] LABS: BASO% 0.4 % (0-3); EOS% 0.8 % (0-8); HEMATOCRIT 39.8 % (39.0-50.0); HEMOGLOBIN 12.7 g/dl (14.0-18.0); IMMATURE GRANULOCYTES 0.3 % (0.0-5.0); LYMPH% 18.6 % (15-41); MEAN CELL VOLUME 85.6 fL CALC (80.0-100.0); MEAN CORPUSCULAR HGB 27.3 pG CALC (26.0-32.0); MEAN CORPUSCULAR HGB CONC 31.9 g/dL CAL (32.0-36.0); MONO% 4.9 % (2-13); NEUT# 10.87 thou/uL (1.82-7.42); RED BLOOD COUNT 4.65 mill/uL (4.70-6.10); RED CELL DISTRI WIDTH 15.6 % (11.5-15.5)
[2023-12-26 15:17] LABS: ALBUMIN 3.6 g/dL (3.2-5.0); BILIRUBIN, TOTAL 0.3 mg/dL (0.2-1.3); CREATININE 0.7 mg/dL (0.7-1.3); POTASSIUM 4.1 mmol/l (3.5-5.1)
[2023-12-26 16:31] LABS: URINE BILIRUBIN - DIPSTICK Negative (NEGATIVE); URINE BLOOD DIPSTICK Trace-intact (NEGATIVE); URINE GLUCOSE - DIPSTICK 100 mg/dL (NEGATIVE); URINE KETONE Negative (NEGATIVE); URINE PROTEIN - DIPSTICK Negative (NEG-TRACE); URINE UROBILINOGEN - DIPSTICK 0.2 E.U./dL (0.2)
[2023-12-26 16:35] LABS: URINE COLOR Yellow; URINE LEUK ESTERASE Moderate (NEGATIVE); URINE NITRITE - DIPSTICK Positive (Negative)
[2023-12-26 16:46] LABS: URINE BACTERIA MODERATE hpf; URINE RBC 0-2 RBC/hpf (0-5); URINE SQUAMOUS EPITHELIAL CELL FEW EPI/hpf (0-FEW)
[2023-12-26] MEDS ORDERED: cefTRIAXone SODIUM 2 GM in SODIUM CHLORIDE 0.9% 100 ML IV ONE (17:10)
[2023-12-26] MEDS ORDERED: MORPHINE SULFATE 4 MG/ML VIAL IV ONE (17:30)
[2023-12-26 18:19] VITALS: BP 131/73
== END 2023-12-26 18:15 | disposition short-term general hospital (02) ==
LOC: ED 14:16
PROVIDERS: Family Medicine
DX: N34.0 Urethral abscess (principal); B96.20 Unspecified Escherichia coli [E. coli] as the cause of diseases classified elsewhere; I10 Essential (primary) hypertension; I25.10 Atherosclerotic heart disease of native coronary artery without angina pectoris; K21.9 Gastro-esophageal reflux disease without esophagitis; E78.00 Pure hypercholesterolemia, unspecified; Z86.711 Personal history of pulmonary embolism; Z95.1 Presence of aortocoronary bypass graft; Z95.5 Presence of coronary angioplasty implant and graft; F17.200 Nicotine dependence, unspecified, uncomplicated

== ENCOUNTER 2024-08-12 10:45 | Emergency (ER) | payer OTHER ==
[2024-08-12] VITALS (13 sets, daily range): BP systolic 121–176; BP diastolic 64–103
[~2024-08-12] VITALS: Ht 177.8 cm; Wt 123.8 kg
[~2024-08-12 10:45] MED LIST changes: +POTASSIUM CHLO10 MEQ PO; +TENORMIN25 MG PO; +WELLBUTRIN XL300 MG PO
[2024-08-12] MEDS ORDERED: KETOROLAC TROMETHAMINE 30 MG/ML SDV IV ONE (11:20)
[2024-08-12] MEDS ORDERED: METOCLOPRAMIDE HCL 10 MG/2 ML SDV IV ONE (11:20)
[2024-08-12] MEDS ORDERED: methylPREDNISolone SODIUM SUCC 125 MG/2 ML SDV IV ONE (11:20)
[2024-08-12] MEDS ORDERED: IPRATROPIUM-Albuterol 0.5MG-2.5MG/3 ML IN ONE ×2 (11:25)
[2024-08-12 11:32] LABS: BASO% 0.5 % (0-3); EOS% 1.5 % (0-8); IMMATURE GRANULOCYTES 0.5 % (0.0-5.0); LYMPH% 22.9 % (15-41); MEAN CELL VOLUME 85.4 fL CALC (80.0-100.0); MEAN CORPUSCULAR HGB CONC 31.6 g/dL CAL (32.0-36.0); MONO% 8.8 % (2-13); NEUT# 4.25 thou/uL (1.82-7.42); NEUT% 65.8 % (42-76); RED BLOOD COUNT 5.55 mill/uL (4.70-6.10); RED CELL DISTRI WIDTH 15.7 % (11.5-15.5)
[2024-08-12 11:36] LABS: HEMATOCRIT 47.4 % (39.0-50.0)
[2024-08-12 11:44] LABS: D-DIMER 0.77 mg/L (0.19-0.60)
[2024-08-12 11:59] LABS: PROTHROMBIN TIME 10.3 SECONDS (9.0-12.5)
[2024-08-12 12:02] LABS: ALBUMIN 4.7 g/dL (3.2-5.0); ALKALINE PHOSPHATASE 111 u/l (38-126); ANION GAP 14 (6-22 (CALC)); BILIRUBIN, TOTAL 0.4 mg/dL (0.2-1.3); BUN 13 mg/dL (8-23); BUN/CREATININE RATIO 13 (12-20 (CALC)); CARBON DIOXIDE 26 mmol/l (22-30); CHLORIDE 103 mmol/l (95-108); ESTIMATED GFR 85 ML/MIN (>=90 (CALC)); POTASSIUM 3.9 mmol/l (3.5-5.1); SGOT/AST 54 u/l (19-48); SODIUM 139 mmol/l (137-146); TOTAL PROTEIN 8.2 g/dL (6.3-8.2)
[2024-08-12 12:58] LABS: URINE BILIRUBIN - DIPSTICK Negative (NEGATIVE); URINE BLOOD DIPSTICK Trace-lysed (NEGATIVE); URINE GLUCOSE - DIPSTICK Negative (NEGATIVE); URINE KETONE Negative (NEGATIVE); URINE LEUK ESTERASE Negative (NEGATIVE); URINE NITRITE - DIPSTICK Negative (Negative); URINE PH 5.5 (4.5-8.0); URINE PROTEIN - DIPSTICK Negative (NEG-TRACE); URINE UROBILINOGEN - DIPSTICK 0.2 E.U./dL (0.2)
[2024-08-12 13:00] LABS: URINE COLOR Yellow
[2024-08-12] MEDS ORDERED: IPRATROPIU0.5 MG/3 M IN (14:32)
[2024-08-12] MEDS ORDERED: PREDNISONE50 MG PO (14:32)
== END 2024-08-12 14:49 | disposition home or self-care (01) ==
LOC: ED 10:45
PROVIDERS: Emergency Medicine
DX: J40 Bronchitis, not specified as acute or chronic (principal); I10 Essential (primary) hypertension; I25.10 Atherosclerotic heart disease of native coronary artery without angina pectoris; K21.9 Gastro-esophageal reflux disease without esophagitis; E78.00 Pure hypercholesterolemia, unspecified; F17.200 Nicotine dependence, unspecified, uncomplicated; Z86.711 Personal history of pulmonary embolism; Z95.1 Presence of aortocoronary bypass graft; Z20.822 Contact with and (suspected) exposure to COVID-19
CPT/HCPCS: J2765; Q9967